=== PATIENT | male | born 1990 | race African-American/Black ===

== ENCOUNTER 2020-02-27 12:10 | Emergency (ER) | payer MEDICAID ==
[~2020-02-27] VITALS: Ht 175.3 cm; Wt 80.0 kg
[2020-02-27] MEDS ORDERED: LEVETIRACETAM 1000MG/100ML 100 ML IV ONE (13:00)
[2020-02-27 14:13] LABS: HEMATOCRIT. 41.3 % (42.0-52.0); HEMOGLOBIN. 13.9 g/dL (14.0-18.0); MEAN CORPUSCULAR HEMOGLOBIN 32.7 pg (28.0-32.0); MEAN CORPUSCULAR VOLUME 97.2 fL (80.0-94.0); MEAN PLATELET VOLUME 8.9 fl (7.4-10.4); PLATELET 197 x1000/uL (130-400); RED BLOOD CELL COUNT 4.25 mill/uL (4.7-6.1); RED CELL DISTRIBUTION WIDTH 13.8 % (11.6-14.6)
[2020-02-27 14:16] LABS: CHLORIDE 108 mEq/L (98-107)
[2020-02-27 14:20] LABS: ETHANOL BLOOD < 10 mg/dL
[2020-02-27 14:43] LABS: PLATELET ESTIMATE NORMAL
[2020-02-27] MEDS ORDERED: LORAZEPAM 2MG/ML CPJ IV ONE (15:30)
[2020-02-27 16:20] VITALS: BP 140/60
[2020-02-27] MEDS ORDERED: LEVETIRACETAM 500MG TABLET PO ONE (17:15)
== END 2020-02-27 18:57 | disposition home or self-care (01) ==
LOC: ER 12:10
DX: G40.909 Epilepsy, unspecified, not intractable, without status epilepticus (principal); R03.0 Elevated blood-pressure reading, without diagnosis of hypertension
CPT/HCPCS: 36415; 70450; 80053; 80320; 85025; 96374; 99284; J1953; G0480